=== PATIENT | male | born 1980 | race Caucasian/White ===

== ENCOUNTER 2020-09-30 18:14 | Emergency (ER) | payer MEDICAID, OTHER, SELFPAY ==
[2020-09-30 20:06] VITALS: BP 106/64; PULSE 86; RESP 16; TEMP 36.6; O2SAT 100; BMI 37.5
[2020-09-30 20:18] LABS: MANUAL DIFF FLAG NO
[2020-09-30 20:19] LABS: Basophils Percent Auto 0.1 % (0-2); Eosinophils Percent Auto 0.4 % (0-4); Hematocrit 42.8 % (42-52); Hemoglobin 14.4 g/dl (14.0-18.0); Imm Gran Abs Auto 0.02 X10*3/uL (0.00-0.03); Imm Gran Pct Auto 0.3 % (0.0-0.4); Lymphocytes Absolute Auto 1.3 X10*3/uL (1.2-4.9); Lymphocytes Percent Auto 16.3 % (20-40); Mean Corpuscular HGB Conc 33.6 g/dl (31.0-36.0); Mean Corpuscular Hemoglobin 29.3 pg (27.0-33.0); Mean Corpuscular Volume 87.2 fL (80-98); Mean Platelet Volume 9.9 fL (9.4-12.4); Monocytes Absolute Auto 0.4 X10*3/uL (0.1-1.2); Monocytes Percent Auto 4.8 % (2-11); Neutrophils Absolute Auto 6.2 X10*3/uL (2.0-8.3); Neutrophils Percent Auto 78.1 % (45-73); Platelet Count 251 X10*3/uL (160-400); Red Blood Count 4.91 X10*6/uL (4.60-5.80); Red Cell Distribution Width 11.9 % (11.0-16.0); White Blood Count 7.9 X10*3/uL (4.8-10.8)
[2020-09-30 20:42] LABS: Anion Gap 16 (12-20); Blood Urea Nitrogen 10 mg/dL (9-16); Calcium 8.7 mg/dL (8.4-10.2); Carbon Dioxide 28 mmol/L (22-29); Chloride 98 mmol/L (96-108); Creatinine Clr Calc Pharmacy 148.1; Estimated Glomerular Filt Rate > 60; Glucose Random 100 mg/dL (60-115); Potassium 3.8 mmol/L (3.3-5.1); Sodium 138 mmol/L (135-145)
[2020-09-30 22:00] VITALS: PULSE 78; RESP 16; O2SAT 100
--- NOTE | 2020-09-30 22:34 | ED_ITS ---
HPI - Nausea/Vomiting/Diarrhea General Chief complaint: Nausea/Vomiting/Diarrhea Stated complaint: vomiting Time Seen by Provider: 09/30/20 22:34 Source: patient Mode of arrival: ambulatory Limitations: no limitations History of Present Illness HPI Narrative: Patient complaining of nausea vomiting diarrhea since yesterday night after eating supper at home no other family member is sick patient does not work and stays at home no fever no chills no significant abdominal pain no rash no significant past medical history. Patient vomited multiple times now just nausea at this time had 3 or 4 bowel movements today MD elicited complaint: nausea, vomiting and diarrhea Related Data Allergies Allergy/AdvReac Type Severity Reaction Status Date / Time No Known Allergies Allergy Unverified 03/20/20 19:04 [No Known Allergies*] Review of Systems Review of Systems: Constitutional : No Weight loss, No Fever, No Chills ENT/Mouth : No sore throat, No Rhinorrhea Eyes: No Eye Pain, No Swelling Cardiovascular : No Chest Pain, no palpitations Respiratory : No Cough, No Sputum, no shortness of breath Gastrointestinal : + Nausea, +Vomiting, + Diarrhea, No abdominal Pain, no black stools Genitourinary : No Dysuria, No Urinary Frequency Musculoskeletal : No joint pain, No Myalgias, No Joint Swelling Skin : No Skin Lesions, No rash Neuro : No Weakness, No Numbness, No Dizziness, No Headache Psych : No Anxiety/Panic, No Depression Heme/Lymph: No Bruising, No Lymphadenopathy Endocrine : No Polyuria, No Polydipsia All other systems reviewed and are negative PMFSH Past Medical History Medical History No known health problems Social History Social History Advance Directives: No Physical Exam Vital Signs: Vital Signs: Last Vital Signs Temp 98 F 09/30/20 20:06 Pulse 78 09/30/20 22:00 Resp 16 09/30/20 22:00 BP 106/64 09/30/20 20:06 Pulse Ox 100 09/30/20 22:00 Body Mass Index 37.5 Appearance: Alert. Oriented X3. No acute distress. Eyes: Pupils equal, round and reactive to light. ENT: Pharynx normal. Neck: Normal inspection. Neck supple. CVS: Normal heart rate and rhythm. Pulses normal. Respiratory: No respiratory distress. Breath sounds normal. Abdomen: Soft and nontender. Bowel sounds are present, no mass palpable, no CVA tenderness Skin: Skin warm and dry. Normal skin color. Normal skin turgor. Extremities: No lower extremity edema. Neuro: Oriented X 3. No motor deficit. No sensory deficit. MDM - Nausea/Vomiting/Diarrhea MDM Narrative Medical decision making narrative: Patient with likely gastroenteritis nontoxic look benign abdomen responded to Imodium and Zofran taking p.o. fluids will discharge patient home Differential Diagnosis Differential diagnosis: Likely gastroenteritis Lab Data Attestation: I reviewed the patient's lab results. Result diagrams: 09/30/20 20:14 09/30/20 20:14 Labs: Lab Results 09/30/20 09/30/20 Range/Units 20:14 20:14 WBC 7.9 (4.8-10.8) X10*3/uL RBC 4.91 (4.60-5.80) X10*6/uL Hgb 14.4 (14.0-18.0) g/dl Hct 42.8 (42-52) % MCV 87.2 (80-98) fL MCH 29.3 (27.0-33.0) pg MCHC 33.6 (31.0-36.0) g/dl RDW 11.9 (11.0-16.0) % Plt Count 251 (160-400) X10*3/uL MPV 9.9 (9.4-12.4) fL Immature Gran % (Auto) 0.3 (0.0-0.4) % Neut % (Auto) 78.1 H (45-73) % Lymph % (Auto) 16.3 L (20-40) % [place] % (Auto) 4.8 (2-11) % Eos % (Auto) 0.4 (0-4) % Baso % (Auto) 0.1 (0-2) % Lymph # (Auto) 1.3 (1.2-4.9) X10*3/uL [place] # (Auto) 0.4 (0.1-1.2) X10*3/uL Eos # (Auto) 0.0 (0.0-0.4) X10*3/uL Baso # (Auto) 0.0 (0.0-0.2) X10*3/uL Abs Immat Gran (auto) 0.02 (0.00-0.03) X10*3/uL Absolute Neuts (auto) 6.2 (2.0-8.3) X10*3/uL Absolute Nucleated RBC 0.000 (0.0-0.012) X10*3/uL Nucleated RBC % (auto) 0.0 (0.0-0.2) /100WBC Sodium 138 (135-145) mmol/L Potassium 3.8 (3.3-5.1) mmol/L Chloride 98 (96-108) mmol/L Carbon Dioxide 28 (22-29) mmol/L Anion Gap 16 (12-20) BUN 10 (9-16) mg/dL Creatinine 0.78 (0.5-1.4) mg/dL Estim Creat Clear Calc 148.1 Estimated GFR > 60 Random Glucose 100 (60-115) mg/dL Calcium 8.7 (8.4-10.2) mg/dL Discharge Plan Discharge Clinical Impression: Gastroenteritis Patient Disposition: Home, Self-Care Instructions: Gastroenteritis (ED) Additional Instructions: Drink plenty of fluids as advised Follow with PCP if not better Interventions: ED Discharge Assessment Last Done: 09/30/20 23:11 Discharge Date/Time: 09/30/20 23:12
[2020-09-30] MEDS: Loperamide HCl 2 MG CAPSULE 4 MG PO (22:48)
== END 2020-09-30 23:12 | disposition home or self-care (01) ==
PROVIDERS: Emergency Provider Internal Medicine
DX: K52.9 Noninfective gastroenteritis and colitis, unspecified (principal); R11.2 Nausea with vomiting, unspecified
CPT/HCPCS: 36415; 80048; 85025; 99283

== ENCOUNTER 2021-12-12 22:56 | Emergency (ER) | payer MEDICAID, OTHER, SELFPAY ==
--- NOTE | ~2021-12-12 | XR_ITS ---
EXAMINATION: XR ELBOW, LEFT CLINICAL INFORMATION: Elbow pain COMPARISON: None TECHNIQUE: AP, lateral, and oblique views of the left elbow. FINDINGS: The bones and soft tissues are normal. No fracture or joint effusion. Alignment is anatomic. Joint spaces are maintained. XR/XR elbow LT 2V IMPRESSION: Normal left elbow.
[2021-12-12 23:20] VITALS: BP 123/79; PULSE 86; RESP 18; TEMP 36.9; O2SAT 98; BMI 39.6
--- NOTE | 2021-12-13 00:05 | ED.EXTPRO ---
HPI - Extremity Problem General Chief complaint: Extremity Injury, Upper Stated complaint: Back pain/Elbow pain Time Seen by Provider: 12/13/21 00:04 History of Present Illness HPI Narrative: Patient is a 41-year-old male presents today with having left shoulder pain. Patient claims the pain happened when he flexes his elbow. There is no trauma. There is no overall exertion. There is no chest pain. There is no shortness of breath. There is no diaphoresis. There is no radiation of the pain. In association with the elbow pain patient also has back pain that is mid back going down to the lower back area there is no bowel urinary incontinence is no focal weakness it does not seem to be temporally related to the elbow pain. Denies any heavy lifting. No history of sudden in the family. No history of abdominal aortic aneurysms. No history of hypertension hypercholesterolemia. No history of smoking. Patient denies any coughing congestion upper respiratory symptoms. No history of DE. Patient denies any chest pain. There is no diaphoresis. Related Data Previous Rx's Medication Instructions Recorded ibuprofen 400 mg tablet 400 mg PO Q6H PRN pain #20 tabs 12/13/21 Allergies Allergy/AdvReac Type Severity Reaction Status Date / Time No Known Allergies Allergy Unverified 03/20/20 19:04 [No Known Allergies*] Review of Systems Review of Systems: Positive left elbow pain on flexion. Positive back pain on movement. No bowel urinary incontinence no focal weakness Yes all other systems are reviewed and are negative [facility] Past Medical History Medical History No known health problems Social History Social History Advance Directives: No Physical Exam Vital Signs: Vital Signs: Last Vital Signs Temp 98.4 F 12/12/21 23:20 Pulse 86 12/12/21 23:20 Resp 18 12/12/21 23:20 BP 123/79 12/12/21 23:20 Pulse Ox 98 12/12/21 23:20 O2 Del Method 12/12/21 23:20 BMI result Body Mass Index 39.6 MDM - Extremity (Nontraumatic) MDM Narrative Medical decision making narrative: X-ray showed no acute fracture range of motion in tact. More likely musculoskeletal will have patient take Motrin for the elbow pain. Patient's back pain has no bowel urinary incontinence no focal weakness pain localized. Motrin for pain follow up outpatient basis. In stable condition. No evidence for cauda equina. No trauma. No risk factors for AAA Discharge Plan Discharge Clinical Impression: Elbow sprain, Back pain Patient Disposition: Home, Self-Care Instructions: Elbow Sprain (ED), Back Pain (ED) Prescriptions: New ibuprofen 400 mg tablet 400 mg PO Q6H PRN (Reason: pain) Qty: 20 0RF
== END 2021-12-13 00:59 | disposition home or self-care (01) ==
PROVIDERS: Emergency Provider Emergency Medicine Emergency Medical Services
DX: S53.402A Unspecified sprain of left elbow, initial encounter (principal); M54.9 Dorsalgia, unspecified; X58.XXXA Exposure to other specified factors, initial encounter; Y93.9 Activity, unspecified; Y92.9 Unspecified place or not applicable; Y99.9 Unspecified external cause status
CPT/HCPCS: 73070; 99283

== ENCOUNTER 2024-12-25 10:20 | Outpatient (REF) | payer SELFPAY ==
[2024-12-25 14:35] LABS: Alanine Aminotransferase 60 U/L (0-40); Albumin Level 4.6 g/dL (3.5-5.0); Alkaline Phosphatase 74 U/L (39-117); Anion Gap 13 (12-20); Aspartate Amino Transferase 37 U/L (5-37); Bilirubin Direct 0.2 mg/dL (0.0-0.5); Bilirubin Total 0.6 mg/dL (0.0-1.0); Blood Urea Nitrogen 11 mg/dL (9-16); Calcium 9.1 mg/dL (8.4-10.2); Carbon Dioxide 24 mmol/L (22-29); Chloride 107 mmol/L (96-108); Cholesterol 200 mg/dL (<200); Estimated Glomerular Filt Rate > 60; Glucose Random 109 mg/dL (60-115); HDL Cholesterol 42 mg/dL (>40); LDL Cholesterol Calculated 132 mg/dL (<100); Potassium 4.1 mmol/L (3.3-5.1); Sodium 140 mmol/L (135-145); Total Protein 7.2 g/dL (6.5-8.0); Triglycerides 133 mg/dL (<150)
[2024-12-25 14:41] LABS: PSA,Total (Free>4and<10) 0.53 ng/mL (0.00-4.00)
[2024-12-26 08:21] LABS: HIV AB/AG Nonreactive (Nonreactive); HIV Num 1 0.06 S/CO (0.00-0.99); ~HepC Num1 0.12 S/CO (0.00-0.79); ~Hepatitis C Antibody Nonreactive (Nonreactive)
== END 2024-12-25 10:21 | disposition home or self-care (01) ==
LOC: HO.CHCLDS 10:20
PROVIDERS: Visit Provider Student in an Organized Health Care Education/Training Program
DX: Z13.89 Encounter for screening for other disorder (principal)
CPT/HCPCS: 36415; 80048; 80061; 80076; 84153; 86803; 87389